=== PATIENT | female | born 1975 | race Caucasian/White ===

== ENCOUNTER 2017-12-21 10:55 | Day surgery (SDC) | payer OTHER ==
[~2017-12-21] VITALS: Ht 165.1 cm; Wt 88.5 kg
[2017-12-21] MEDS ORDERED: BUPIVACAINE /PF 0.25% 30 ML VIAL INJ ONE (12:00)
[2017-12-21] MEDS ORDERED: methylPREDNISolone ACETATE 80 MG/ML ONE (12:00)
[2017-12-21] MEDS ORDERED: LIDOCAINE PF 2%, 200 MG/10 ML AMPUL.LUER (EPIDURAL) INJ ONE (12:00)
[2017-12-21] MEDS ORDERED: NS 50 ML BAG IV ONE (12:00)
[2017-12-21] MEDS ORDERED: DIPHENHYDRAMINE INJ 50 MG/ML VIAL ONE (12:08)
[2017-12-21 12:37] LABS: HCG,QUAL RESULT NEGATIVE (NEGATIVE)
[2017-12-21] MEDS ORDERED: IOHEXOL 50 ML IV ONE (12:41)
[2017-12-21] MEDS: MIDAZOLAM HCL 5 MG/5 ML VIAL ONE ×2 (13:44→13:52)
[2017-12-21 15:54] VITALS: BP_SYST 116
== END 2017-12-21 14:35 | disposition home or self-care (01) ==
LOC: SDS 10:55 → SMU 12:03 → SDS 14:35
PROVIDERS: ATTEND Internal Medicine
DX: M51.16 Intervertebral disc disorders with radiculopathy, lumbar region (principal)
CPT/HCPCS: 62323; 84703; J1040; J1200; J2001; J2250; J3490; Q9967; 77003

== ENCOUNTER 2018-09-16 09:35 | Emergency (ER) | payer OTHER ==
[~2018-09-16] VITALS: Ht 165.1 cm; Wt 87.1 kg
[2018-09-16] MEDS ORDERED: NACL 0.9% 1,000 ML IV ONE ×2 (09:39→09:45)
[2018-09-16 09:48] VITALS: BP_SYST 131
[2018-09-16 10:37] LABS: STREPTOCOCCUS A SCREEN (RAPID) NEGATIVE (NEGATIVE)
[2018-09-16 10:39] LABS: HEMATOCRIT 42.2 % (36-48); HEMOGLOBIN 14.2 g/dL (12.0-16.0); LYMPHOCYTES % (AUTO) 28.3 % (20.5-51.5); MEAN CORPUSCULAR HEMOGLOBIN 30 pg (27-31); MEAN CORPUSCULAR HGB CONC 34 % (32-36); MEAN CORPUSCULAR VOLUME 89 fL (79.0-98.0); NEUTROPHILS % (AUTO) 63.6 % (40.0-70.0); PLATELET COUNT (AUTO) 470 K/uL (130-430); RED BLOOD CELL COUNT(AUTO) 4.72 MIL/uL (4.2-6.2); RED CELL DISTRIBUTION WIDTH 13.3 % (9.0-15.0); WHITE BLOOD COUNT (AUTO) 10.5 K/uL (4.8-10.8)
[2018-09-16 10:40] LABS: BASOPHILS # (AUTO) 0.1 K/uL (0.0-0.2); BASOPHILS % (AUTO) 0.9 % (0.0-2.0); CALCIUM 8.9 mg/dL (8.4-11.0); CREATININE 0.74 mg/dL (0.55-1.30); EOSINOPHILS # (AUTO) 0.2 K/uL (0.0-0.4); EOSINOPHILS % (AUTO) 2.2 % (0.0-4.0); MONOCYTES # (AUTO) 0.5 K/uL (0.0-1.0); NEUTROPHILS # (AUTO) 6.7 K/uL (1.8-7.7); POTASSIUM 3.6 mmol/L (3.5-5.1)
[2018-09-16 10:44] LABS: INR 0.9 (0.8-1.2); PROTHROMBIN TIME 9.6 SECS (9.5-12.5)
[2018-09-16 10:52] LABS: INFLUENZA A&B ANTIGEN SCREEN NEGATIVE FOR A & B (NEGATIVE)
[2018-09-16 10:55] LABS: ALBUMIN 3.3 g/dL (3.4-4.8); TOTAL BILIRUBIN 0.1 mg/dL (0.0-1.0)
[2018-09-16 11:10] LABS: BILIRUBIN,URINE NEGATIVE (NEGATIVE); BLOOD, URINE NEGATIVE (NEGATIVE); CLARITY/URINE CLEAR (CLEAR); COLOR,URINE YELLOW (YELLOW); GLUCOSE,URINE NEGATIVE (NEGATIVE); KETONES,URINE NEGATIVE (NEGATIVE); LEUKOCYTE ESTERASE ,URINE NEGATIVE (NEGATIVE); NITRITE, URINE NEGATIVE (NEGATIVE); PROTEIN URINE NEGATIVE (NEGATIVE); UROBILINOGEN,URINE 0.2 (0.2-1.0)
[2018-09-16 12:09] VITALS: BP_SYST 136
== END 2018-09-16 12:10 | disposition home or self-care (01) ==
LOC: SED 09:35
DX: J11.1 Influenza due to unidentified influenza virus with other respiratory manifestations (principal); M79.10 Myalgia, unspecified site; H10.9 Unspecified conjunctivitis; R05 Cough; F32.9 Major depressive disorder, single episode, unspecified; Z86.59 Personal history of other mental and behavioral disorders
CPT/HCPCS: 36415; 71045; 80053; 81003; 82550; 83605; 83690; 84484; 85025; 85610; 85730; 86403; 86710; 87040; 87081; 93005; 99284; J7030

== ENCOUNTER 2021-12-03 08:41 | Emergency (ER) | payer OTHER, MEDICAID ==
[~2021-12-03] VITALS: Ht 165.1 cm; Wt 82.6 kg
[2021-12-03 08:50] VITALS: BP_SYST 111
--- NOTE | 2021-12-03 08:50 | NUR ---
Patient to ER bed 4 to gown for evaluation. Side rails up. Report given to Filemon PROCTOR.
--- NOTE | 2021-12-03 09:33 | NUR ---
Pt persent to ED with complaint of DUNLAP with vertigo and blurred vision. Pt AOx4 GCS 15 in bed
[2021-12-03] MEDS ORDERED: KETOROLAC TROMETHAMINE 30 MG VIAL IVP ONE (10:00)
[2021-12-03] MEDS ORDERED: DIPHENHYDRAMINE INJ 50 MG/ML VIAL IVP ONE (10:00)
[2021-12-03] MEDS ORDERED: OXYMETAZOLINE HCL 0.05% NASAL SPRAY NS ONE (10:00)
[2021-12-03] MEDS ORDERED: NACL 0.9% 1,000 ML IV ONE (10:30)
[2021-12-03 10:32] LABS: BASOPHILS % (AUTO) 0.6 % (0.0-2.0); EOSINOPHILS % (AUTO) 0.7 % (0.0-4.0); HEMATOCRIT 40.1 % (36-48); HEMOGLOBIN 13.7 g/dL (12.0-16.0); LYMPHOCYTES # (AUTO) 2.3 K/uL (1.0-5.5); LYMPHOCYTES % (AUTO) 34.3 % (20.5-51.5); MEAN CORPUSCULAR HEMOGLOBIN 31 pg (27-31); MEAN CORPUSCULAR HGB CONC 34 % (32-36); MEAN CORPUSCULAR VOLUME 89 fL (79.0-98.0); MONOCYTES # (AUTO) 0.4 K/uL (0.0-1.0); MONOCYTES % (AUTO) 6.1 % (1.7-9.3); NEUTROPHILS % (AUTO) 58.3 % (40.0-70.0); PLATELET COUNT (AUTO) 349 K/uL (130-430); RED BLOOD CELL COUNT(AUTO) 4.48 MIL/uL (4.2-6.2); RED CELL DISTRIBUTION WIDTH 14.1 % (9.0-15.0); WHITE BLOOD COUNT (AUTO) 6.8 K/uL (4.8-10.8)
--- NOTE | 2021-12-03 10:36 | NUR ---
Pt seen by ED physician at bedside
[2021-12-03 10:37] LABS: BILIRUBIN,URINE NEGATIVE (NEGATIVE); BLOOD, URINE NEGATIVE (NEGATIVE); CLARITY/URINE CLEAR (CLEAR); COLOR,URINE YELLOW (YELLOW); GLUCOSE,URINE NEGATIVE (NEGATIVE); KETONES,URINE NEGATIVE (NEGATIVE); LEUKOCYTE ESTERASE ,URINE NEGATIVE (NEGATIVE); NITRITE, URINE NEGATIVE (NEGATIVE); PROTEIN URINE NEGATIVE (NEGATIVE); UROBILINOGEN,URINE 0.2 (0.2-1.0)
[2021-12-03 11:03] LABS: CALCIUM 8.7 mg/dL (8.4-11.0); CREATININE 0.71 mg/dL (0.55-1.30)
[2021-12-03 11:08] LABS: ALBUMIN 3.4 g/dL (3.4-4.8); TOTAL BILIRUBIN 0.4 mg/dL (0.0-1.0)
[2021-12-03 11:13] LABS: POTASSIUM 4.9 mmol/L (3.5-5.1)
[2021-12-03] MEDS ORDERED: FLUT16SP16 NS (12:43)
[2021-12-03] MEDS ORDERED: LORA10TA7 PO ×2 (12:43)
[2021-12-03] MEDS ORDERED: FEXO-272 PO (12:43)
--- NOTE | 2021-12-03 12:53 | NUR ---
Patient given written and verbal discharge instructions and verbalizes understanding. ER MD discussed with patient the results and treatment provided. Patient in stable condition. ID arm band removed. IV catheter removed intact and dressing applied, no active bleeding. Patient educated on pain management and to follow up with PMD. Pain Scale 0/10. Opportunity for questions provided and answered. Medication side effect fact sheet provided. Pt self ambulated out ED in no acute distress AOx4 GCS 15.
[2021-12-03 12:55] VITALS: BP_SYST 132
== END 2021-12-03 12:53 | disposition home or self-care (01) ==
LOC: SED 08:41
DX: R42 Dizziness and giddiness (principal); H57.89 Other specified disorders of eye and adnexa; R51.9 Headache, unspecified; R11.0 Nausea
CPT/HCPCS: 36415; 70450; 76376; 80053; 81003; 85025; 93005; 96361; 96374; 96375; 99285; J1200; J1885; J7030